=== PATIENT | female | born 1965 | race Caucasian/White ===

== ENCOUNTER 2017-11-12 15:19 | Inpatient (IN) ==
[2017-11-12] MEDS ORDERED: ONDANSETRON 4 MG/2 ML VIAL IV PRN (15:32)
[2017-11-12] MEDS ORDERED: ALBUTEROL 2.5 MG/3 ML NEB RESP TX PRN (15:32)
[2017-11-12] MEDS ORDERED: LORazepam INJ 40 MG in DEXTROSE 5% 30 ML IV SCH (16:00)
[2017-11-12] MEDS ORDERED: SODIUM CHLORIDE 0.9% 1,000 ML IV SCH (16:00)
[2017-11-12] MEDS ORDERED: SODIUM CHLORIDE 0.9% 1,000 ML IV PRN ×2 (16:42→17:39)
[2017-11-12 16:59] LABS: Immature Granulocytes % 0.7 %; Immature Granulocytes Absolute 0.14 #; Lymphocytes # 0.6 10*3/uL (1.4-4.0); Lymphocytes % 2.6 % (21.3-54.2); Mean Corpuscular HGB Conc 23.1 GM/DL (32-36); Mean Corpuscular Hemoglobin 14 PG (27-34); Mean Corpuscular Volume 61.9 FL (87-102); Monocytes # 0.6 10*3/uL (0.11-0.8); Monocytes % 2.7 % (1.7-12.7); NRBC # 0.06 10*3/uL; Neutrophils # 19.5 10*3/uL (1.4-7.4); Platelet Count 460 T/CUMM (130-400); Red Blood Count 2.52 MC/CUMM (3.8-5.5); Red Cell Distribution Width 20.7 % (9.3-17.3); White Blood Count 20.8 T/CUMM (4-12)
[2017-11-12] MEDS ORDERED: FAMOTIDINE 20 MG/2 ML VIAL IV SCH (17:00)
[2017-11-12 17:06] LABS: ABG Base Excess -7.6 MMOL/L (-2.5-2.5); ABG HCO3 18.3 MMOL/L (20-26); ABG Oxygen Saturation 98.1 % (95-100); ABG PCO2 39.8 MM HG (35-48); ABG PH 7.281 (7.35-7.45); ABG PO2 182.6 MM HG (80-95); ABG TCO2 19.5 MMOL/L (23-27)
[2017-11-12] MEDS ORDERED: PANTOPRAZOLE 40 MG VIAL IV ONE (17:06)
[2017-11-12 17:07] LABS: Apearance,Urine CLOUDY (Clear); Bilirubin,Urine Negative (Negative); Blood, Urine Large mg/dL (Negative); Glucose,Urine (UA) Negative (Negative); Hyaline Casts,Urine 14 /LPF (0-3); Ketones,Urine Negative (Negative); Mucus,Urine Occasional /LPF (Occasional); Nitrite,Urine Negative (Negative); Protein,Urine 30 MG/DL; RBC,Urine 3 /HPF (0-4); Squamous Epithelial Cell,Urine Occasional /HPF (0-10); Urine Color Yellow (Yellow); Urine Specific Gravity 1.016 (1.001-1.035); Urine Urobilinogen < 2.0 EU/DL (0.2-1.0); WBC,Urine 3 /HPF (0-6)
[2017-11-12 17:17] LABS: Albumin 3.3 G/DL (3.4-5.0); Bilirubin,Total 1.1 MG/DL (0.2-1.0); Magnesium 1.9 MG/DL (1.8-2.4); Osmolality,Calculated 265.7 MOS/KG (273-304); Potassium 3.2 MMOL/L (3.5-5.1); Total Protein 5.8 G/DL (6.4-8.3)
[2017-11-12 17:18] LABS: Lactic Acid 3.9 MMOL/L (0.4-2.0)
[2017-11-12 17:19] LABS: Hemoglobin 3.6 GM/DL (12.0-16.0)
[2017-11-12 17:20] LABS: Hematocrit 15.6 VOL% (35.7-47.0)
[2017-11-12] MEDS ORDERED: SODIUM CHLORIDE 0.9% 2,050 ML IV ONE (17:55)
[2017-11-12 18:02] LABS: Acanthocytes 1+; Band Neutrophils 5 % (0-10); Hypochromasia 3+; Lymphocytes 2 % (20-55); Platelet Estimate Increased; Segmented Neutrophils 92 % (50-85); Total Cells Counted 100
[2017-11-12 18:03] LABS: Anisocytosis 3+; Macrocytosis 2+; Microcytosis 1+; Ovalocytes 1+
[2017-11-12] MEDS: MIDAZOLAM 100 MG in SODIUM CHLORIDE 0.9% 80 ML IV SCH (18:04)
[2017-11-12] MEDS: NOREPINEPHRINE 8 MG in SODIUM CHLORIDE 0.9% 242 ML IV SCH ×2 (18:56→21:40)
[2017-11-12] MEDS: PROPOFOL 1,000 MG/100 ML BOTTLE IV SCH ×2 (18:56→21:29)
[2017-11-12] MEDS: fentaNYL INJ 1,250 MCG in SODIUM CHLORIDE 0.9% 225 ML IV SCH (18:56)
[2017-11-12] MEDS: PIPERACILLIN/TAZOBACTAM 3,375 MG in SODIUM CHLORIDE 0.9% 100 ML IV SCH (19:19)
[2017-11-12] MEDS ORDERED: SODIUM CHLORIDE 0.9% 500 ML IV ONE (19:23)
[2017-11-12] MEDS ORDERED: FUROSEMIDE 40 MG/4 ML VIAL IV ONE (19:24)
[2017-11-12] MEDS ORDERED: MINERAL OIL/PETROLATUM OPH OINT 3.5 GM TUBE BOTH EYES PRN (19:27)
[2017-11-12] MEDS ORDERED: MINERAL OIL/PETROLATUM OPH OINT 3.5 GM TUBE BOTH EYES SCH (21:00)
[2017-11-12] MEDS ORDERED: DEXTROSE 50% 25 GM/50 ML VIAL IV ONE (21:24)
[2017-11-12] MEDS: PANTOPRAZOLE 40 MG VIAL IV SCH (21:29)
[2017-11-12] MEDS ORDERED: NOREPINEPHRINE 4 MG/4 ML VIAL IV ONE (21:35)
[2017-11-12] MEDS: POTASSIUM CHLORIDE 20 MEQ/15 ML UDCUP PER TUBE SCH ×2 (21:40→22:27)
[2017-11-12] MEDS: DEXTROSE 50% 25 GM/50 ML VIAL IV PRN (22:15)
[2017-11-12] MEDS: VANCOMYCIN INJ 1,000 MG in SODIUM CHLORIDE 0.9% 250 ML IV SCH (22:24)
[2017-11-12] MEDS: DEXTROSE 5% NACL 0.9% 1,000 ML IV SCH (22:27)
[2017-11-13] MEDS: POTASSIUM CHLORIDE 20 MEQ/15 ML UDCUP PER TUBE SCH ×2 (01:23→05:20)
[2017-11-13] MEDS: PIPERACILLIN/TAZOBACTAM 3,375 MG in SODIUM CHLORIDE 0.9% 100 ML IV SCH ×3 (01:23→17:16)
[2017-11-13 03:57] LABS: ABG Base Excess -8.2 MMOL/L (-2.5-2.5); ABG HCO3 17.7 MMOL/L (20-26); ABG Oxygen Saturation 99.7 % (95-100); ABG PCO2 32.6 MM HG (35-48); ABG PH 7.324 (7.35-7.45); ABG TCO2 15.9 MMOL/L (23-27); Allen Test Positive; Pt O2 Delivery Device Ventilator
[2017-11-13] MEDS: PROPOFOL 1,000 MG/100 ML BOTTLE IV SCH ×3 (04:52→16:34)
[2017-11-13 07:02] LABS: Magnesium 1.8 MG/DL (1.8-2.4)
[2017-11-13 07:09] LABS: Lactic Acid 1.6 MMOL/L (0.4-2.0)
[2017-11-13 07:16] LABS: Albumin 2.6 G/DL (3.4-5.0); Calcium 7.4 MG/DL (8.5-10.1); Osmolality,Calculated 273.1 MOS/KG (273-304); Potassium 4.3 MMOL/L (3.5-5.1); Total Protein 5.3 G/DL (6.4-8.3)
[2017-11-13] MEDS: MIDAZOLAM 100 MG in SODIUM CHLORIDE 0.9% 80 ML IV SCH ×3 (09:17→23:11)
[2017-11-13] MEDS: PANTOPRAZOLE 40 MG VIAL IV SCH ×2 (09:33→20:24)
[2017-11-13] MEDS: HALOPERIDOL 5 MG/ML AMP IV SCH ×2 (09:36→20:24)
[2017-11-13 10:16] LABS: Basophils % 0.2 % (0.0-0.8); Eosinophils # 0.1 10*3/uL (0.0-0.87); Eosinophils % 0.7 % (0.00-10.9); Hematocrit 30.6 VOL% (35.7-47.0); Hemoglobin 8.8 GM/DL (12.0-16.0); Immature Granulocytes % 1.7 %; Immature Granulocytes Absolute 0.29 #; Lymphocytes # 0.5 10*3/uL (1.4-4.0); Lymphocytes % 3.1 % (21.3-54.2); Mean Corpuscular HGB Conc 28.8 GM/DL (32-36); Mean Corpuscular Hemoglobin 21 PG (27-34); Mean Corpuscular Volume 72.5 FL (87-102); Mean Platelet Volume 9.7 FL (9.6-12.0); Monocytes # 0.8 10*3/uL (0.11-0.8); Monocytes % 4.9 % (1.7-12.7); NRBC # 0.09 10*3/uL; Neutrophils # 15.2 10*3/uL (1.4-7.4); Neutrophils % 89.4 % (38.7-73.9); Platelet Count 356 T/CUMM (130-400); Red Blood Count 4.22 MC/CUMM (3.8-5.5); Red Cell Distribution Width 28.5 % (9.3-17.3)
[2017-11-13 10:17] LABS: INR 1.3; PT Patient Result 13.6 SECS; Partial Thromboplastin Time 26.8 SECS (0-40)
[2017-11-13 10:28] LABS: Calcium 7.8 MG/DL (8.5-10.1); Magnesium 1.8 MG/DL (1.8-2.4); Osmolality,Calculated 276.8 MOS/KG (273-304); Potassium 4.5 MMOL/L (3.5-5.1)
[2017-11-13 10:53] LABS: Band Neutrophils 10 % (0-10); Burr Cells Slight; Lymphocytes 3 % (20-55); Platelet Estimate Normal; Segmented Neutrophils 82 % (50-85); Total Cells Counted 100
[2017-11-13 10:54] LABS: Hypochromasia 2+; Tear Drop Cells Few
[2017-11-13] MEDS: DEXTROSE 5% NACL 0.9% 1,000 ML IV SCH (11:40)
[2017-11-13 12:16] LABS: Barbiturates Screen,Urine Negative (Negative); Benzodiazepines Screen,Urine Positive (Negative); Cannabinoid Screen,Urine Negative (Negative); Opiate Screen,Urine Positive (Negative); Phencyclidine Screen,Urine Negative (Negative)
[2017-11-13] MEDS: NOREPINEPHRINE 8 MG in SODIUM CHLORIDE 0.9% 242 ML IV SCH (16:34)
[2017-11-13] MEDS: fentaNYL INJ 1,250 MCG in SODIUM CHLORIDE 0.9% 225 ML IV SCH (16:35)
[2017-11-13] MEDS: VANCOMYCIN INJ 1,000 MG in SODIUM CHLORIDE 0.9% 250 ML IV SCH (17:15)
[2017-11-14] MEDS: PROPOFOL 1,000 MG/100 ML BOTTLE IV SCH ×4 (00:16→19:51)
[2017-11-14] MEDS: DEXTROSE 5% NACL 0.9% 1,000 ML IV SCH (00:42)
[2017-11-14] MEDS: PIPERACILLIN/TAZOBACTAM 3,375 MG in SODIUM CHLORIDE 0.9% 100 ML IV SCH ×4 (01:48→17:52)
[2017-11-14 04:17] LABS: ABG Base Excess -8.2 MMOL/L (-2.5-2.5); ABG HCO3 17.7 MMOL/L (20-26); ABG PCO2 30.4 MM HG (35-48); ABG PH 7.345 (7.35-7.45); ABG TCO2 15.6 MMOL/L (23-27)
[2017-11-14 05:04] LABS: Basophils % 0.3 % (0.0-0.8); Eosinophils # 0.1 10*3/uL (0.0-0.87); Eosinophils % 0.6 % (0.00-10.9); Hematocrit 25.2 VOL% (35.7-47.0); Hemoglobin 7.4 GM/DL (12.0-16.0); Immature Granulocytes Absolute 0.32 #; Lymphocytes # 0.8 10*3/uL (1.4-4.0); Lymphocytes % 7.2 % (21.3-54.2); Mean Corpuscular HGB Conc 29.4 GM/DL (32-36); Mean Corpuscular Hemoglobin 21 PG (27-34); Mean Corpuscular Volume 71.4 FL (87-102); Mean Platelet Volume 9.6 FL (9.6-12.0); Monocytes # 0.7 10*3/uL (0.11-0.8); Monocytes % 6.6 % (1.7-12.7); NRBC # 0.02 10*3/uL; Neutrophils # 8.7 10*3/uL (1.4-7.4); Neutrophils % 82.3 % (38.7-73.9); Platelet Count 323 T/CUMM (130-400); Red Blood Count 3.53 MC/CUMM (3.8-5.5); White Blood Count 10.5 T/CUMM (4-12)
[2017-11-14 05:27] LABS: Calcium 7.2 MG/DL (8.5-10.1); Osmolality,Calculated 283.3 MOS/KG (273-304); Potassium 4.1 MMOL/L (3.5-5.1)
[2017-11-14 05:34] LABS: Band Neutrophils 1 % (0-10); Burr Cells Slight; Giant Platelets Few; Hypochromasia 1+; Lymphocytes 10 % (20-55); Microcytosis Slight; Ovalocytes Slight; Platelet Estimate Adequate; Segmented Neutrophils 82 % (50-85); Total Cells Counted 100
[2017-11-14] MEDS: HALOPERIDOL 5 MG/ML AMP IV SCH ×2 (08:52→20:58)
[2017-11-14] MEDS: PANTOPRAZOLE 40 MG VIAL IV SCH ×2 (08:52→20:58)
[2017-11-14] MEDS: VANCOMYCIN INJ 1,000 MG in SODIUM CHLORIDE 0.9% 250 ML IV SCH ×2 (11:09→13:31)
[2017-11-14] MEDS: MIDAZOLAM 100 MG in SODIUM CHLORIDE 0.9% 80 ML IV SCH ×2 (15:38→19:51)
[2017-11-14] MEDS ORDERED: SODIUM CHLORIDE 0.9% 1,000 ML IV PRN (15:50)
[2017-11-14] MEDS ORDERED: FUROSEMIDE 20 MG/2 ML VIAL IV ONE (17:12)
[2017-11-14] MEDS: NOREPINEPHRINE 8 MG in SODIUM CHLORIDE 0.9% 242 ML IV SCH (19:51)
[2017-11-14] MEDS: fentaNYL INJ 1,250 MCG in SODIUM CHLORIDE 0.9% 225 ML IV SCH (19:51)
[2017-11-15] MEDS: PIPERACILLIN/TAZOBACTAM 3,375 MG in SODIUM CHLORIDE 0.9% 100 ML IV SCH ×2 (02:08→10:17)
[2017-11-15] MEDS: PROPOFOL 1,000 MG/100 ML BOTTLE IV SCH ×5 (02:20→22:16)
[2017-11-15 04:31] LABS: Allen Test Positive; Pt O2 Delivery Device Ventilator
[2017-11-15 04:32] LABS: ABG Base Excess -5.1 MMOL/L (-2.5-2.5); ABG HCO3 20.2 MMOL/L (20-26); ABG Oxygen Saturation 99.4 % (95-100); ABG PCO2 32.1 MM HG (35-48); ABG PH 7.383 (7.35-7.45); ABG TCO2 17.3 MMOL/L (23-27)
[2017-11-15 04:35] LABS: Basophils % 0.4 % (0.0-0.8); Eosinophils # 0.1 10*3/uL (0.0-0.87); Eosinophils % 0.5 % (0.00-10.9); Hematocrit 29.4 VOL% (35.7-47.0); Hemoglobin 8.7 GM/DL (12.0-16.0); Immature Granulocytes % 0.9 %; Immature Granulocytes Absolute 0.09 #; Lymphocytes # 0.7 10*3/uL (1.4-4.0); Lymphocytes % 6.4 % (21.3-54.2); Mean Corpuscular HGB Conc 29.6 GM/DL (32-36); Mean Corpuscular Hemoglobin 22 PG (27-34); Mean Corpuscular Volume 73.5 FL (87-102); Mean Platelet Volume 9.6 FL (9.6-12.0); Monocytes # 0.5 10*3/uL (0.11-0.8); Monocytes % 4.8 % (1.7-12.7); NRBC # 0.02 10*3/uL; Neutrophils # 9.1 10*3/uL (1.4-7.4); Platelet Count 312 T/CUMM (130-400); White Blood Count 10.4 T/CUMM (4-12)
[2017-11-15 04:48] LABS: Giant Platelets Few; Hypochromasia 1+; Lymphocytes 6 % (20-55); Microcytosis Slight; Ovalocytes Slight; Platelet Estimate Adequate; Segmented Neutrophils 91 % (50-85); Total Cells Counted 100
[2017-11-15 05:04] LABS: Calcium 7.9 MG/DL (8.5-10.1)
[2017-11-15 05:05] LABS: Potassium 3.9 MMOL/L (3.5-5.1)
[2017-11-15] MEDS: VANCOMYCIN INJ 1,000 MG in SODIUM CHLORIDE 0.9% 250 ML IV SCH (05:15)
[2017-11-15] MEDS: HALOPERIDOL 5 MG/ML AMP IV SCH ×2 (08:15→21:06)
[2017-11-15] MEDS: PANTOPRAZOLE 40 MG VIAL IV SCH ×2 (08:15→21:06)
[2017-11-15 10:08] LABS: ABG HCO3 20.3 MMOL/L (20-26); ABG Oxygen Saturation 99.5 % (95-100); ABG PCO2 31.8 MM HG (35-48); ABG PH 7.389 (7.35-7.45); ABG TCO2 17.7 MMOL/L (23-27)
[2017-11-15 14:40] LABS: % Iron Saturation 5.4 % (18-50); Ferritin 34.8 ng/ml (8-252)
[2017-11-15] MEDS ORDERED: IRON DEXTRAN 25 MG in SYRINGE 1 EACH IV ONE (15:00)
[2017-11-15] MEDS: CLARITHROMYCIN 500 MG TABLET PER TUBE SCH ×2 (15:54→21:06)
[2017-11-15] MEDS: FUROSEMIDE 20 MG/2 ML VIAL IV SCH (15:54)
[2017-11-15] MEDS: AMOXICILLIN 50 MG/ML 150 ML/BOTTLE PO SCH ×2 (16:47→21:06)
[2017-11-15] MEDS ORDERED: IRON DEXTRAN IV ONE (18:30)
[2017-11-15] MEDS ORDERED: SODIUM CHLORIDE 0.9% IV ONE (18:30)
[2017-11-15] MEDS: NOREPINEPHRINE 8 MG in SODIUM CHLORIDE 0.9% 242 ML IV SCH (19:00)
[2017-11-15] MEDS: fentaNYL INJ 1,250 MCG in SODIUM CHLORIDE 0.9% 225 ML IV SCH (19:02)
[2017-11-16] MEDS: PROPOFOL 1,000 MG/100 ML BOTTLE IV SCH ×8 (01:54→22:21)
[2017-11-16 04:40] LABS: ABG Base Excess -1.2 MMOL/L (-2.5-2.5); ABG HCO3 23.5 MMOL/L (20-26); ABG Oxygen Saturation 98.1 % (95-100); ABG PCO2 34.8 MM HG (35-48); ABG PH 7.425 (7.35-7.45); ABG TCO2 21.3 MMOL/L (23-27)
[2017-11-16 05:08] LABS: Basophils % 0.2 % (0.0-0.8); Eosinophils # 0.1 10*3/uL (0.0-0.87); Eosinophils % 1.6 % (0.00-10.9); Hematocrit 27.2 VOL% (35.7-47.0); Hemoglobin 8.4 GM/DL (12.0-16.0); Immature Granulocytes % 0.9 %; Immature Granulocytes Absolute 0.08 #; Lymphocytes # 0.9 10*3/uL (1.4-4.0); Lymphocytes % 10.6 % (21.3-54.2); Mean Corpuscular HGB Conc 30.9 GM/DL (32-36); Mean Corpuscular Hemoglobin 23 PG (27-34); Mean Corpuscular Volume 74.9 FL (87-102); Mean Platelet Volume 9.4 FL (9.6-12.0); Monocytes # 0.5 10*3/uL (0.11-0.8); Monocytes % 5.7 % (1.7-12.7); NRBC # 0.02 10*3/uL; Neutrophils # 7.2 10*3/uL (1.4-7.4); Platelet Count 237 T/CUMM (130-400); Red Blood Count 3.63 MC/CUMM (3.8-5.5); White Blood Count 8.9 T/CUMM (4-12)
[2017-11-16 05:27] LABS: Calcium 7.3 MG/DL (8.5-10.1); Osmolality,Calculated 276.5 MOS/KG (273-304); Potassium 3.1 MMOL/L (3.5-5.1)
[2017-11-16 05:40] LABS: Eosinophils 2 % (0-10); Giant Platelets Few; Hypochromasia 1+; Lymphocytes 8 % (20-55); Platelet Estimate Adequate; Segmented Neutrophils 87 % (50-85); Total Cells Counted 100
[2017-11-16 05:41] LABS: Microcytosis Slight; Ovalocytes Slight
[2017-11-16] MEDS: DEXTROSE 5% NACL 0.9% 1,000 ML IV SCH (07:24)
[2017-11-16] MEDS: FUROSEMIDE 20 MG/2 ML VIAL IV SCH ×2 (07:53→15:52)
[2017-11-16 08:22] LABS: ABG Base Excess -0.3 MMOL/L (-2.5-2.5); ABG HCO3 24.1 MMOL/L (20-26); ABG PCO2 35.3 MM HG (35-48); ABG PH 7.433 (7.35-7.45); ABG PO2 67.2 MM HG (80-95); ABG TCO2 21.9 MMOL/L (23-27)
[2017-11-16] MEDS: CLARITHROMYCIN 500 MG TABLET PER TUBE SCH ×2 (09:02→21:29)
[2017-11-16] MEDS: AMOXICILLIN 50 MG/ML 150 ML/BOTTLE PO SCH ×2 (09:02→21:29)
[2017-11-16] MEDS: POTASSIUM CHLORIDE 20 MEQ/15 ML UDCUP PER TUBE PRN ×5 (09:02→23:05)
[2017-11-16] MEDS: HALOPERIDOL 5 MG/ML AMP IV SCH ×2 (09:03→21:29)
[2017-11-16] MEDS: PANTOPRAZOLE 40 MG VIAL IV SCH ×2 (09:05→21:29)
[2017-11-16] MEDS ORDERED: ROCURONIUM 100 MG/10 ML VIAL IV ONE (09:09)
[2017-11-16] MEDS: hydrALAZINE 20 MG/1 ML VIAL IV PRN (23:06)
[2017-11-17] MEDS: POTASSIUM CHLORIDE 20 MEQ/15 ML UDCUP PER TUBE PRN ×2 (01:10→06:33)
[2017-11-17] MEDS: PROPOFOL 1,000 MG/100 ML BOTTLE IV SCH ×3 (01:31→16:28)
[2017-11-17 04:09] LABS: ABG Base Excess 0.8 MMOL/L (-2.5-2.5); ABG HCO3 25.2 MMOL/L (20-26); ABG Oxygen Saturation 99.9 % (95-100); ABG PCO2 34.7 MM HG (35-48); ABG PH 7.457 (7.35-7.45); ABG TCO2 22.6 MMOL/L (23-27)
[2017-11-17 04:55] LABS: Basophils % 0.3 % (0.0-0.8); Eosinophils # 0.1 10*3/uL (0.0-0.87); Eosinophils % 1.3 % (0.00-10.9); Hematocrit 26.8 VOL% (35.7-47.0); Hemoglobin 8.5 GM/DL (12.0-16.0); Immature Granulocytes % 1.2 %; Immature Granulocytes Absolute 0.11 #; Lymphocytes # 0.9 10*3/uL (1.4-4.0); Lymphocytes % 9.8 % (21.3-54.2); Mean Corpuscular HGB Conc 31.7 GM/DL (32-36); Mean Corpuscular Hemoglobin 23 PG (27-34); Mean Corpuscular Volume 73.6 FL (87-102); Mean Platelet Volume 9.8 FL (9.6-12.0); Monocytes # 0.8 10*3/uL (0.11-0.8); Monocytes % 8.2 % (1.7-12.7); NRBC # 0.02 10*3/uL; Neutrophils # 7.5 10*3/uL (1.4-7.4); Neutrophils % 79.2 % (38.7-73.9); Platelet Count 228 T/CUMM (130-400); Red Blood Count 3.64 MC/CUMM (3.8-5.5); White Blood Count 9.5 T/CUMM (4-12)
[2017-11-17 05:22] LABS: Hypochromasia 1+; Microcytosis 1+; Target Cells Slight
[2017-11-17 05:23] LABS: Platelet Estimate Normal
[2017-11-17 05:30] LABS: Calcium 7.3 MG/DL (8.5-10.1); Osmolality,Calculated 272.8 MOS/KG (273-304); Potassium 3.9 MMOL/L (3.5-5.1)
[2017-11-17] MEDS: HALOPERIDOL 5 MG/ML AMP IV SCH ×3 (08:38→23:35)
[2017-11-17] MEDS: FUROSEMIDE 20 MG/2 ML VIAL IV SCH (08:41)
[2017-11-17] MEDS: hydrALAZINE 20 MG/1 ML VIAL IV PRN ×2 (08:43→16:13)
[2017-11-17] MEDS: ZINC OXIDE PASTE 113 GM TUBE TOP PRN (08:46)
[2017-11-17 09:08] LABS: ABG Base Excess 1.6 MMOL/L (-2.5-2.5); ABG HCO3 25.9 MMOL/L (20-26); ABG Oxygen Saturation 99.7 % (95-100); ABG PCO2 30.8 MM HG (35-48); ABG PH 7.504 (7.35-7.45)
[2017-11-17 11:11] LABS: ABG Base Excess 3.4 MMOL/L (-2.5-2.5); ABG HCO3 27.5 MMOL/L (20-26); ABG PH 7.519 (7.35-7.45); ABG TCO2 23.8 MMOL/L (23-27)
[2017-11-17] MEDS: AMOXICILLIN 50 MG/ML 150 ML/BOTTLE PO SCH ×2 (11:27→21:15)
[2017-11-17] MEDS: CLARITHROMYCIN 500 MG TABLET PER TUBE SCH ×2 (11:28→21:15)
[2017-11-17] MEDS: PANTOPRAZOLE 40 MG VIAL IV SCH ×2 (11:28→21:15)
[2017-11-17] MEDS: traMADol 50 MG TABLET PO PRN ×2 (13:11→18:14)
[2017-11-17] MEDS: DEXTROSE 50% 25 GM/50 ML VIAL IV PRN ×2 (16:16→20:19)
[2017-11-17] MEDS ORDERED: PNEUMOCOCCAL VACCINE (23 VALENT) 0.5 ML VIAL IM ONE (17:54)
[2017-11-17] MEDS ORDERED: INFLUENZA VIRUS VACCINE 0.5 ML SYRINGE IM ONE (17:54)
[2017-11-18] MEDS: traMADol 50 MG TABLET PO PRN ×3 (00:06→20:52)
[2017-11-18] MEDS ORDERED: DEXTROSE 5% 1,000 ML IV SCH (08:30)
[2017-11-18] MEDS: ZINC OXIDE PASTE 113 GM TUBE TOP PRN (08:30)
[2017-11-18] MEDS: DEXTROSE 50% 25 GM/50 ML VIAL IV PRN ×3 (08:39→16:30)
[2017-11-18] MEDS: PANTOPRAZOLE 40 MG VIAL IV SCH ×2 (08:41→20:52)
[2017-11-18] MEDS ORDERED: NYSTATIN CREAM 30 GM TUBE TOP SCH (09:00)
[2017-11-18] MEDS: ACYCLOVIR INJ 500 MG in SODIUM CHLORIDE 0.9% 100 ML IV SCH ×2 (09:59→16:29)
[2017-11-18] MEDS: MYLANTA/LIDO VISC 2:1 300 ML BOTTLE SWISH/SPIT PRN ×2 (10:08→19:05)
[2017-11-18] MEDS: BACITRACIN OINT 28.35 GM TUBE TOP SCH (11:33)
[2017-11-18 14:12] LABS: HIV Antigen/Antibody Result Nonreactive (Nonreactive)
[2017-11-18] MEDS: HALOPERIDOL 1 MG TABLET PO SCH ×2 (14:30→20:51)
[2017-11-18] MEDS: CLARITHROMYCIN 500 MG TABLET PER TUBE SCH ×2 (14:30→20:51)
[2017-11-18] MEDS: AMOXICILLIN 50 MG/ML 150 ML/BOTTLE PO SCH ×2 (14:31→20:52)
[2017-11-18] MEDS: hydrALAZINE 20 MG/1 ML VIAL IV PRN (14:54)
[2017-11-18] MEDS: DEXTROSE 10% 1,000 ML IV SCH (16:29)
[2017-11-18] MEDS: METOPROLOL TARTRATE 50 MG TABLET PO SCH ×2 (18:10→20:51)
[2017-11-18] MEDS: DESITIN 4OZ/NYSTATIN 15 GRAM MIXTURE PASTE TOP SCH (20:57)
[2017-11-18] MEDS ORDERED: CARVEDILOL 6.25 MG TABLET PO SCH (21:00)
[2017-11-19] MEDS: ACYCLOVIR INJ 500 MG in SODIUM CHLORIDE 0.9% 100 ML IV SCH ×3 (00:45→18:00)
[2017-11-19] MEDS: traMADol 50 MG TABLET PO PRN ×4 (02:16→18:00)
[2017-11-19 02:34] LABS: Basophils # 0.1 10*3/uL (0.0-0.2); Basophils % 0.6 % (0.0-0.8); Eosinophils # 0.4 10*3/uL (0.0-0.87); Eosinophils % 3.8 % (0.00-10.9); Hematocrit 29.5 VOL% (35.7-47.0); Hemoglobin 8.5 GM/DL (12.0-16.0); Immature Granulocytes % 1.6 %; Immature Granulocytes Absolute 0.16 #; Lymphocytes # 1.4 10*3/uL (1.4-4.0); Lymphocytes % 14.7 % (21.3-54.2); Mean Corpuscular HGB Conc 28.8 GM/DL (32-36); Mean Corpuscular Hemoglobin 22 PG (27-34); Mean Corpuscular Volume 74.9 FL (87-102); Mean Platelet Volume 9.6 FL (9.6-12.0); Monocytes # 0.8 10*3/uL (0.11-0.8); Monocytes % 8.4 % (1.7-12.7); Neutrophils # 6.9 10*3/uL (1.4-7.4); Neutrophils % 70.9 % (38.7-73.9); Platelet Count 281 T/CUMM (130-400); Red Blood Count 3.94 MC/CUMM (3.8-5.5); White Blood Count 9.7 T/CUMM (4-12)
[2017-11-19] MEDS: DEXTROSE 10% 1,000 ML IV SCH ×2 (06:28→20:14)
[2017-11-19] MEDS: CLARITHROMYCIN 500 MG TABLET PER TUBE SCH ×2 (08:12→20:14)
[2017-11-19] MEDS: HALOPERIDOL 1 MG TABLET PO SCH ×2 (08:12→20:14)
[2017-11-19] MEDS: MYLANTA/LIDO VISC 2:1 300 ML BOTTLE SWISH/SPIT PRN (08:13)
[2017-11-19] MEDS: METOPROLOL TARTRATE 50 MG TABLET PO SCH ×2 (08:13→20:14)
[2017-11-19] MEDS: PANTOPRAZOLE 40 MG VIAL IV SCH ×2 (08:14→20:14)
[2017-11-19] MEDS: BACITRACIN OINT 28.35 GM TUBE TOP SCH (08:14)
[2017-11-19] MEDS: DESITIN 4OZ/NYSTATIN 15 GRAM MIXTURE PASTE TOP SCH (08:14)
[2017-11-19] MEDS: AMOXICILLIN 50 MG/ML 150 ML/BOTTLE PO SCH ×2 (08:29→20:14)
[2017-11-19] MEDS: hydrALAZINE 10 MG TABLET PO SCH ×3 (10:00→20:14)
[2017-11-20] MEDS: traMADol 50 MG TABLET PO PRN ×5 (00:32→22:03)
[2017-11-20] MEDS: ACYCLOVIR INJ 500 MG in SODIUM CHLORIDE 0.9% 100 ML IV SCH ×3 (00:32→17:54)
[2017-11-20] MEDS: DESITIN 4OZ/NYSTATIN 15 GRAM MIXTURE PASTE TOP SCH ×3 (00:32→22:13)
[2017-11-20] MEDS: DEXTROSE 10% 1,000 ML IV SCH ×2 (02:53→10:10)
[2017-11-20 05:47] LABS: Basophils # 0.1 10*3/uL (0.0-0.2); Basophils % 0.6 % (0.0-0.8); Eosinophils # 0.4 10*3/uL (0.0-0.87); Eosinophils % 4.5 % (0.00-10.9); Hematocrit 30.4 VOL% (35.7-47.0); Immature Granulocytes % 1.1 %; Immature Granulocytes Absolute 0.11 #; Lymphocytes # 1.6 10*3/uL (1.4-4.0); Lymphocytes % 16.2 % (21.3-54.2); Mean Corpuscular HGB Conc 29.6 GM/DL (32-36); Mean Corpuscular Hemoglobin 22 PG (27-34); Mean Corpuscular Volume 75.8 FL (87-102); Mean Platelet Volume 9.9 FL (9.6-12.0); Monocytes # 0.6 10*3/uL (0.11-0.8); Monocytes % 6.5 % (1.7-12.7); Neutrophils % 71.1 % (38.7-73.9); Platelet Count 303 T/CUMM (130-400); Red Blood Count 4.01 MC/CUMM (3.8-5.5); White Blood Count 9.9 T/CUMM (4-12)
[2017-11-20 06:32] LABS: Giant Platelets Few; Hypochromasia 1+; Microcytosis Slight; Ovalocytes Slight; Platelet Estimate Adequate
[2017-11-20] MEDS: METOPROLOL TARTRATE 50 MG TABLET PO SCH ×2 (08:36→22:02)
[2017-11-20] MEDS: CLARITHROMYCIN 500 MG TABLET PER TUBE SCH ×2 (08:36→22:02)
[2017-11-20] MEDS: HALOPERIDOL 1 MG TABLET PO SCH ×2 (08:36→22:02)
[2017-11-20] MEDS: PANTOPRAZOLE 40 MG VIAL IV SCH ×2 (08:37→22:04)
[2017-11-20] MEDS: BACITRACIN OINT 28.35 GM TUBE TOP SCH (08:45)
[2017-11-20] MEDS: AMOXICILLIN 50 MG/ML 150 ML/BOTTLE PO SCH ×2 (08:56→22:12)
[2017-11-20] MEDS: hydrALAZINE 25 MG TABLET PO SCH ×3 (09:01→22:01)
[2017-11-20] MEDS: IRON SUCROSE 200 MG in SODIUM CHLORIDE 0.9% 100 ML IV SCH (16:20)
[2017-11-21] MEDS: DEXTROSE 10% 1,000 ML IV SCH ×4 (01:29→23:15)
[2017-11-21] MEDS: ACYCLOVIR INJ 500 MG in SODIUM CHLORIDE 0.9% 100 ML IV SCH ×3 (01:30→18:35)
[2017-11-21] MEDS: traMADol 50 MG TABLET PO PRN ×4 (03:43→22:01)
[2017-11-21 05:51] LABS: Basophils # 0.1 10*3/uL (0.0-0.2); Eosinophils # 0.3 10*3/uL (0.0-0.87); Eosinophils % 3.2 % (0.00-10.9); Hematocrit 30.3 VOL% (35.7-47.0); Hemoglobin 8.8 GM/DL (12.0-16.0); Immature Granulocytes % 0.8 %; Immature Granulocytes Absolute 0.08 #; Lymphocytes # 1.5 10*3/uL (1.4-4.0); Lymphocytes % 14.5 % (21.3-54.2); Mean Corpuscular Hemoglobin 22 PG (27-34); Mean Corpuscular Volume 76.1 FL (87-102); Mean Platelet Volume 9.5 FL (9.6-12.0); Monocytes # 0.6 10*3/uL (0.11-0.8); Neutrophils # 7.8 10*3/uL (1.4-7.4); Neutrophils % 74.5 % (38.7-73.9); Platelet Count 356 T/CUMM (130-400); Red Blood Count 3.98 MC/CUMM (3.8-5.5); White Blood Count 10.4 T/CUMM (4-12)
[2017-11-21 06:26] LABS: Calcium 8.4 MG/DL (8.5-10.1); Magnesium 1.8 MG/DL (1.8-2.4); Osmolality,Calculated 267.1 MOS/KG (273-304); Potassium 3.4 MMOL/L (3.5-5.1)
[2017-11-21 06:37] LABS: Hypochromasia Slight; Macrocytosis 1+; Polychromasia Slight
[2017-11-21] MEDS: CLARITHROMYCIN 500 MG TABLET PER TUBE SCH ×2 (10:01→22:02)
[2017-11-21] MEDS: METOPROLOL TARTRATE 50 MG TABLET PO SCH ×2 (10:01→22:03)
[2017-11-21] MEDS: HALOPERIDOL 1 MG TABLET PO SCH ×2 (10:02→22:02)
[2017-11-21] MEDS: hydrALAZINE 25 MG TABLET PO SCH ×3 (10:02→22:03)
[2017-11-21] MEDS: PANTOPRAZOLE 40 MG VIAL IV SCH ×2 (10:02→22:03)
[2017-11-21] MEDS: AMOXICILLIN 50 MG/ML 150 ML/BOTTLE PO SCH ×2 (10:06→22:05)
[2017-11-21] MEDS: IRON SUCROSE 200 MG in SODIUM CHLORIDE 0.9% 100 ML IV SCH (10:07)
[2017-11-21] MEDS: DESITIN 4OZ/NYSTATIN 15 GRAM MIXTURE PASTE TOP SCH ×2 (10:10→22:07)
[2017-11-21] MEDS: BACITRACIN OINT 28.35 GM TUBE TOP SCH (10:10)
[2017-11-22] MEDS: ACYCLOVIR INJ 500 MG in SODIUM CHLORIDE 0.9% 100 ML IV SCH ×2 (01:58→10:36)
[2017-11-22] MEDS: DEXTROSE 10% 1,000 ML IV SCH (02:51)
[2017-11-22] MEDS: traMADol 50 MG TABLET PO PRN (03:53)
[2017-11-22] MEDS: CLARITHROMYCIN 500 MG TABLET PER TUBE SCH (09:11)
[2017-11-22] MEDS: HALOPERIDOL 1 MG TABLET PO SCH (09:11)
[2017-11-22] MEDS: hydrALAZINE 25 MG TABLET PO SCH (09:12)
[2017-11-22] MEDS: METOPROLOL TARTRATE 50 MG TABLET PO SCH (09:12)
[2017-11-22] MEDS: AMOXICILLIN 50 MG/ML 150 ML/BOTTLE PO SCH (09:12)
[2017-11-22] MEDS: PANTOPRAZOLE 40 MG VIAL IV SCH (09:14)
[2017-11-22] MEDS: IRON SUCROSE 200 MG in SODIUM CHLORIDE 0.9% 100 ML IV SCH (09:16)
[2017-11-22] MEDS: BACITRACIN OINT 28.35 GM TUBE TOP SCH (09:19)
[2017-11-22] MEDS: DESITIN 4OZ/NYSTATIN 15 GRAM MIXTURE PASTE TOP SCH (09:19)
[2017-11-22 09:45] LABS: Calcium 7.8 MG/DL (8.5-10.1); Osmolality,Calculated 280.7 MOS/KG (273-304); Potassium 3.4 MMOL/L (3.5-5.1)
[2017-11-22] MEDS ORDERED: POTASSIUM CHLORIDE 20 MEQ TABLET PO ONE (09:53)
[2017-11-22 12:11] VITALS: BP 140/82
== END 2017-11-22 14:15 | disposition home or self-care (01) | DRG 811 ==
LOC: SUATTDRO 15:32 → N.ICU 15:32 → N.2E 11-20 13:29
PROVIDERS: ADMIT Emergency Medicine; ATTEND Internal Medicine

== ENCOUNTER 2019-12-24 20:55 | Inpatient (IN) ==
[2019-12-24] MEDS ORDERED: SODIUM CHLORIDE 0.9% 1,000 ML IV PRN (23:27)
[2019-12-24] MEDS ORDERED: ONDANSETRON 4 MG/2 ML VIAL IV PRN (23:30)
[2019-12-24] MEDS ORDERED: MAGNESIUM SULF RIDER 1 GM in PREMIX 1 EACH IV ONE (23:37)
[2019-12-24] MEDS: PANTOPRAZOLE 40 MG VIAL IV SCH (23:53)
[2019-12-25] MEDS ORDERED: METHOCARBAMOL 750 MG TABLET PO ONE
[2019-12-25 00:21] LABS: Alanine Aminotransferase < 9 U/L (13-56); Albumin 3.3 G/DL (3.4-5.0); Alkaline Phosphatase 99 U/L (45-117); Aspartate Amino Transferase 4 U/L (0-37); Bilirubin,Total < 0.39 MG/DL (0.2-1.0); Blood Urea Nitrogen 10 MG/DL (7-18); Calcium 8.4 MG/DL (8.5-10.1); Estimated Glom Filtration Rate 92 ML/MIN; Glucose 108 MG/DL (74-106); Osmolality,Calculated 267.2 MOS/KG (273-304); Total Protein 7.1 G/DL (6.4-8.3)
[2019-12-25] MEDS: ALBUTEROL/IPRATROPIUM 3 ML NEB RESP TX SCH ×6 (03:35→23:30)
[2019-12-25 04:46] LABS: Allen Test Positive; Pt O2 Delivery Device Room Air
[2019-12-25 04:47] LABS: ABG Base Excess -2.5 MMOL/L (-2.5-2.5); ABG HCO3 22.3 MMOL/L (20-26); ABG Oxygen Saturation 98.2 % (95-100); ABG PCO2 40.4 MM HG (35-48); ABG PH 7.357 (7.35-7.45); ABG PO2 91.3 MM HG (80-95); ABG TCO2 22.4 MMOL/L (23-27)
[2019-12-25 05:46] LABS: Alanine Aminotransferase < 9 U/L (13-56); Albumin 3.1 G/DL (3.4-5.0); Alkaline Phosphatase 81 U/L (45-117); Aspartate Amino Transferase 4 U/L (0-37); Blood Urea Nitrogen 8 MG/DL (7-18); Calcium 8.7 MG/DL (8.5-10.1); Estimated Glom Filtration Rate 70 ML/MIN; Glucose 95 MG/DL (74-106); Osmolality,Calculated 272.7 MOS/KG (273-304); Total Protein 6.6 G/DL (6.4-8.3)
[2019-12-25 07:41] LABS: Apearance,Urine CLEAR (Clear); Bilirubin,Urine Negative (Negative); Blood, Urine Negative (Negative); Glucose,Urine (UA) Negative (Negative); Ketones,Urine Negative (Negative); Mucus,Urine Occasional /LPF (Occasional); Nitrite,Urine Negative (Negative); Protein,Urine Negative; Squamous Epithelial Cell,Urine Occasional /HPF (0-10); Urine Color Straw (Yellow); Urine Specific Gravity 1.006 (1.001-1.035); Urine Urobilinogen < 2.0 EU/DL (0.2-1.0)
[2019-12-25 07:46] LABS: Barbiturates Screen,Urine Negative (Negative); Benzodiazepines Screen,Urine Negative (Negative); Cannabinoid Screen,Urine Negative (Negative); Opiate Screen,Urine Positive (Negative); Phencyclidine Screen,Urine Negative (Negative)
[2019-12-25] MEDS: PANTOPRAZOLE 40 MG VIAL IV SCH ×2 (08:52→20:15)
[2019-12-25 08:53] LABS: PT Patient Result 10.7 SECS (9.6-12.2)
[2019-12-25 09:13] LABS: Basophils % 0.6 % (0.0-0.8); Eosinophils # 0.1 10*3/uL (0.0-0.87); Eosinophils % 2.6 % (0.00-10.9); Immature Granulocytes % 0.2 %; Immature Granulocytes Absolute 0.01 #; Lymphocytes # 1.8 10*3/uL (1.4-4.0); Lymphocytes % 35.1 % (21.3-54.2); Mean Corpuscular HGB Conc 22.4 GM/DL (32-36); Mean Platelet Volume 9.6 FL (9.6-12.0); Monocytes % 11.8 % (1.7-12.7); Neutrophils % 49.7 % (38.7-73.9); Platelet Count 328 T/CUMM (130-400); Red Blood Count 2.73 MC/CUMM (3.8-5.5); Red Cell Distribution Width 21.8 % (9.3-17.3)
[2019-12-25 09:20] LABS: Hematocrit 16.1 VOL% (35.7-47.0); Hemoglobin 3.6 GM/DL (12.0-16.0)
[2019-12-25 09:25] LABS: Hypochromasia 2+; Ovalocytes Slight; Platelet Estimate Adequate
[2019-12-25] MEDS ORDERED: SODIUM CHLORIDE 0.9% 1,000 ML IV PRN (11:13)
[2019-12-25 18:35] LABS: Hematocrit 22.3 VOL% (35.7-47.0)
[2019-12-26] MEDS: ALBUTEROL/IPRATROPIUM 3 ML NEB RESP TX SCH ×6 (03:16→23:59)
[2019-12-26 05:31] LABS: Basophils # 0.1 10*3/uL (0.0-0.2); Basophils % 1.5 % (0.0-0.8); Eosinophils # 0.1 10*3/uL (0.0-0.87); Eosinophils % 1.7 % (0.00-10.9); Hemoglobin 7.7 GM/DL (12.0-16.0); Immature Granulocytes % 0.4 %; Immature Granulocytes Absolute 0.02 #; Lymphocytes # 1.1 10*3/uL (1.4-4.0); Lymphocytes % 21.6 % (21.3-54.2); Mean Corpuscular HGB Conc 27.8 GM/DL (32-36); Mean Corpuscular Volume 69.3 FL (87-102); Monocytes % 9.4 % (1.7-12.7); Neutrophils % 65.4 % (38.7-73.9); Platelet Count 305 T/CUMM (130-400); Red Cell Distribution Width 31.7 % (9.3-17.3); White Blood Count 5.2 T/CUMM (4-12)
[2019-12-26 06:03] LABS: Hematocrit 27.1 VOL% (35.7-47.0)
[2019-12-26 06:11] LABS: Hypochromasia 2+; Platelet Estimate Adequate
[2019-12-26] MEDS ORDERED: ALBUTEROL/IPRATROPIUM 3 ML NEB RESP TX STA (07:15)
[2019-12-26] MEDS: LACTATED RINGERS 1,000 ML IV SCH (09:14)
[2019-12-26] MEDS ORDERED: LIDOCAINE 2% 5 ML VIAL ONE (10:00)
[2019-12-26] MEDS ORDERED: propofoL 200 MG/20 ML VIAL IV ONE (10:00)
[2019-12-26] MEDS: BISACODYL 5 MG TABLET PO SCH ×2 (11:11→17:55)
[2019-12-26] MEDS: MORPHINE 4 MG/1 ML VIAL IV PRN ×4 (11:11→23:52)
[2019-12-26] MEDS ORDERED: POLYETHYLENE GLYCOL POWDER 255 GM BOTTLE PO ONE (18:00)
[2019-12-26] MEDS: PANTOPRAZOLE 40 MG TABLET PO SCH (20:07)
[2019-12-26] MEDS ORDERED: MAGNESIUM CITRATE 300 ML BOTTLE PO ONE (21:00)
[2019-12-27] MEDS: BISACODYL 5 MG TABLET PO SCH (01:28)
[2019-12-27] MEDS: ALBUTEROL/IPRATROPIUM 3 ML NEB RESP TX SCH ×4 (03:28→14:20)
[2019-12-27] MEDS: MORPHINE 4 MG/1 ML VIAL IV PRN ×3 (04:33→13:54)
[2019-12-27 05:59] LABS: Basophils % 0.6 % (0.0-0.8); Eosinophils # 0.1 10*3/uL (0.0-0.87); Eosinophils % 1.3 % (0.00-10.9); Hematocrit 28.3 VOL% (35.7-47.0); Hemoglobin 8.2 GM/DL (12.0-16.0); Immature Granulocytes % 0.2 %; Immature Granulocytes Absolute 0.01 #; Lymphocytes # 1.1 10*3/uL (1.4-4.0); Lymphocytes % 22.9 % (21.3-54.2); Mean Corpuscular Volume 67.9 FL (87-102); Platelet Count 299 T/CUMM (130-400); Red Blood Count 4.17 MC/CUMM (3.8-5.5); Red Cell Distribution Width 32.2 % (9.3-17.3); White Blood Count 4.8 T/CUMM (4-12)
[2019-12-27 06:13] LABS: Hypochromasia 2+; Platelet Estimate Adequate
[2019-12-27] MEDS: PANTOPRAZOLE 40 MG TABLET PO SCH (06:40)
[2019-12-27] MEDS ORDERED: LIDOCAINE 2% 5 ML VIAL ONE (09:00)
[2019-12-27] MEDS ORDERED: INFLUENZA VIRUS VACCINE 0.5 ML SYRINGE IM ONE (09:00)
[2019-12-27] MEDS ORDERED: propofoL 200 MG/20 ML VIAL IV ONE (09:00)
[2019-12-27] MEDS ORDERED: SODIUM CHLORIDE 0.9% 1,000 ML IV PRN (09:31)
[2019-12-27] MEDS: LACTATED RINGERS 1,000 ML IV SCH (09:41)
[2019-12-27 11:10] VITALS: BP 118/65
== END 2019-12-27 16:55 | disposition home or self-care (01) | DRG 378 ==
LOC: SUATTDRO 22:35 → N.CC 22:35 → N.4E 12-25 14:35
PROVIDERS: ADMIT Internal Medicine; ATTEND Internal Medicine